=== PATIENT | male | born 1965 | race Caucasian/White ===

== ENCOUNTER 2023-05-12 07:23 | Emergency (ER) | payer OTHER, SELFPAY ==
[2023-05-12 07:23] VITALS: BP 140/98; PULSE 87; RESP 17; TEMP 36.3; O2SAT 97
[2023-05-12 08:10] LABS: SARS-CoV-2 RNA PCR Negative (Negative)
--- NOTE | 2023-05-12 08:14 | ED.GENADULT ---
HPI - General Adult General Chief complaint: Ear Stated complaint: Ear Ache Time Seen by Provider: 05/12/23 08:13 History of Present Illness HPI narrative: 57yo man presents to the emergency department for left earache as well as sinus congestion, dry cough, malaise, body aches. Symptoms started 3 days ago. No chest pain or dyspnea. Related Data Allergies Allergy/AdvReac Type Severity Reaction Status Date / Time No Known Allergies Allergy Verified 05/12/23 07:26 Review of Systems Review of Systems: All systems reviewed & are unremarkable except as noted in HPI and below Constitutional: Constitutional: Reports fatigue and Denies fever(s) ENT: Denies dysphagia Cardiovascular: Cardiovascular: Denies chest pain Respiratory: Respiratory: Denies dyspnea Gastrointestinal: Gastrointestinal: Denies abdominal pain Exam Const: General: healthy appearing and no acute distress Nutritional Appearance: well nourished HENMT: Head: normal to inspection Ears: external ears normal and TM's normal bilaterally Other: mild TM erythema left ear; right normal Eyes: Conjunctivae: conjunctivae normal Resp: Effort & Inspection: normal respiratory effort, not labored, no retractions, not tachypneic and no use of accessory muscles Auscultation: no wheezes Cardio: Rate: regular rate GI: Inspection: non-distended GI Palp: Yes Soft to palpation Skin: General skin exam: normal color, no jaundice and no pallor Extrem: General: no clubbing, cyanosis or edema Course Vital Signs Vital signs: Vital Signs Temperature 36.3 C L 05/12/23 07:23 Pulse Rate 87 05/12/23 07:23 Respiratory Rate 17 05/12/23 07:23 Blood Pressure 140/98 H 05/12/23 07:23 Pulse Oximetry 97 05/12/23 07:23 Oxygen Delivery Room Air 05/12/23 07:23 Temperature 36.3 C L 05/12/23 07:23 Pulse Rate 87 05/12/23 07:23 Respiratory Rate 17 05/12/23 07:23 Blood Pressure 140/98 H 05/12/23 07:23 Pulse Oximetry 97 05/12/23 07:23 Oxygen Delivery Room Air 05/12/23 07:23 Medical Decision Making MDM Narrative Medical decision making narrative: Upper respiratory infection, congestion, earache DDx likely viral syndrome. No evidence of serious bacterial infection. Vital Signs Vital Signs: Vital Signs Temperature 36.3 C L 05/12/23 07:23 Pulse Rate 87 05/12/23 07:23 Respiratory Rate 17 05/12/23 07:23 Blood Pressure 140/98 H 05/12/23 07:23 Pulse Oximetry 97 05/12/23 07:23 Oxygen Delivery Room Air 05/12/23 07:23 Temperature 36.3 C L 05/12/23 07:23 Pulse Rate 87 05/12/23 07:23 Respiratory Rate 17 05/12/23 07:23 Blood Pressure 140/98 H 05/12/23 07:23 Pulse Oximetry 97 05/12/23 07:23 Oxygen Delivery Room Air 05/12/23 07:23 Lab Data Labs: Lab Results 05/12/23 Range/Units 07:30 Influenza A (RT-PCR) Pending Influenza B (RT-PCR) Pending RSV (RT-PCR) Pending SARS-CoV-2 RNA (RT-PCR) Pending Discharge Plan Discharge Clinical Impression: Acute upper respiratory infection, Respiratory syncytial virus (RSV) infection, Earache on left Patient Disposition: Home, Self-Care Condition: Stable Instructions: Antibiotic Form Additional Instructions: You tested positive for the RSV virus. This is the cause of your cold symptoms. Take the prescribed medications to help decongestate your sinuses and reduce pain and inflammation in your ears, sinuses, and respiratory tract. Please remain home the following two days to recover and prevent spreading the virus, and then return to work on Friday. Prescriptions: New pseudoephedrine HCl 60 mg tablet 60 mg PO Q4-6H PRN (Reason: congestion) Qty: 24 0RF Rx Instructions: DNExceed 4 doses/24h fluticasone propionate [Flonase Allergy Relief] 50 mcg/actuation spray,suspension 2 spray intranasal BID Qty: 16 0RF Rx Instructions: administer into each nostril ciprofloxacin-dexam
[2023-05-12 08:17] LABS: Influenza A QL RT-PCR Negative (Negative); Influenza B QL RT-PCR Negative (Negative); RSV RNA, RT-PCR Positive (Negative)
--- NOTE | 2023-05-12 08:22 | PC.NURSE ---
ERP at bedside for initial assessment.
[2023-05-12 08:39] VITALS: BP 129/95; PULSE 99; RESP 17; TEMP 36.6; O2SAT 97
== END 2023-05-12 08:39 | disposition home or self-care (01) ==
PROVIDERS: Emergency Provider Emergency Medicine
DX: J06.9 Acute upper respiratory infection, unspecified (principal); B97.4 Respiratory syncytial virus as the cause of diseases classified elsewhere; H92.02 Otalgia, left ear; Z20.822 Contact with and (suspected) exposure to COVID-19
CPT/HCPCS: 87637; 99283